=== PATIENT | female | born 1970 | race Caucasian/White ===

== ENCOUNTER → 2021-11-10 11:50 | Outpatient (BNVA) | payer OTHER, SELFPAY | PROVIDERS: PCP Nurse Practitioner Family; Visit Provider Nurse Practitioner Family | DX: F31.9 Bipolar disorder, unspecified (principal); M54.9 Dorsalgia, unspecified; G89.29 Other chronic pain; F17.200 Nicotine dependence, unspecified, uncomplicated; M54.50 Low back pain, unspecified; Z78.0 Asymptomatic menopausal state; Z13.220 Encounter for screening for lipoid disorders; Z13.6 Encounter for screening for cardiovascular disorders; O82 Encounter for cesarean delivery without indication; Z76.89 Persons encountering health services in other specified circumstances; Z12.31 Encounter for screening mammogram for malignant neoplasm of breast; G43.909 Migraine, unspecified, not intractable, without status migrainosus; Z12.11 Encounter for screening for malignant neoplasm of colon | CPT/HCPCS: 80053; 80061; 82306 ==

== ENCOUNTER → 2022-03-14 12:19 | Outpatient (BNVA) | payer OTHER, SELFPAY | PROVIDERS: PCP Nurse Practitioner Family; Visit Provider Nurse Practitioner Family | DX: E55.9 Vitamin D deficiency, unspecified (principal); M54.50 Low back pain, unspecified; F31.9 Bipolar disorder, unspecified; Z78.0 Asymptomatic menopausal state | CPT/HCPCS: 80053 ==

== ENCOUNTER → 2022-06-15 08:42 | Outpatient (BNVA) | payer OTHER, SELFPAY | PROVIDERS: PCP Nurse Practitioner Family; Visit Provider Nurse Practitioner Family | DX: E78.5 Hyperlipidemia, unspecified (principal); E55.9 Vitamin D deficiency, unspecified; F31.9 Bipolar disorder, unspecified | CPT/HCPCS: 80053; 80061 ==

== ENCOUNTER → 2022-07-18 08:11 | Outpatient (BNVA) | payer OTHER, SELFPAY | PROVIDERS: PCP Nurse Practitioner Family; Visit Provider Nurse Practitioner Family | DX: Z86.19 Personal history of other infectious and parasitic diseases (principal); R79.89 Other specified abnormal findings of blood chemistry | CPT/HCPCS: 80074; 87522 ==

== ENCOUNTER 2022-08-14 06:19 | Outpatient (CLI) | payer OTHER, SELFPAY ==
--- NOTE | 2022-08-14 06:30 | US_ITS ---
WS: [id number] RIGHT UPPER QUADRANT ULTRASOUND HISTORY: hep c COMPARISON: None available. Liver: 15.1 cm in length. Normal size liver and echogenicity. No bile duct dilatation or mass. Portal Vein: Normal hepatopetal flow with monophasic waveform. Gallbladder: Normally distended with stones present. No pericholecystic fluid. Several of these stone s in the gallbladder neck. CBD: 0.6 cm Pancreas: Normal size and echogenicity. Right kidney: 9.6 cm in length. Normal size and echogenicity. No hydronephrosis or mass. Aorta and IVC: Unremarkable abdominal aorta and IVC. No ascites. US/US liver [id number] IMPRESSION: 1. Cholelithiasis. Several stones are identified in the gallbladder. Some of t he stones are located in the neck of the gallbladder. No evidence for acute cho lecystitis or bile duct obstruction at this time. 2. Negative liver.
== END 2022-08-14 06:20 | disposition home or self-care (01) ==
LOC: RAD 06:21
PROVIDERS: PCP Nurse Practitioner Family; Visit Provider Family Medicine
DX: B19.20 Unspecified viral hepatitis C without hepatic coma (principal); K80.20 Calculus of gallbladder without cholecystitis without obstruction
CPT/HCPCS: 76705; 80053; 82977; 84443; 85025; 87806; 87902

== ENCOUNTER → 2022-11-07 08:36 | Outpatient (BNVA) | payer BC, SELFPAY | PROVIDERS: PCP Nurse Practitioner Family; Visit Provider Nurse Practitioner Family | DX: E78.5 Hyperlipidemia, unspecified (principal); E55.9 Vitamin D deficiency, unspecified | CPT/HCPCS: 80053; 80061 ==

== ENCOUNTER → 2023-02-12 14:25 | Outpatient (BNVA) | payer BC, SELFPAY | PROVIDERS: PCP Nurse Practitioner Family; Visit Provider Nurse Practitioner Family | DX: J18.9 Pneumonia, unspecified organism (principal); M54.9 Dorsalgia, unspecified; G89.29 Other chronic pain; M54.50 Low back pain, unspecified; J44.9 Chronic obstructive pulmonary disease, unspecified; R05.9 Cough, unspecified | CPT/HCPCS: 80053 ==

== ENCOUNTER 2023-06-14 20:43 | Emergency (ER) | payer BC, SELFPAY ==
[2023-06-14] VITALS (19 sets, daily range): BP systolic 127–141; BP diastolic 73–83; PULSE 80–82; RESP 14–16; O2SAT 90–97
--- NOTE | 2023-06-14 20:54 | XRR_ITS ---
PROCEDURE INFORMATION: Exam: XR Chest Exam date and time: 06/14/2023 9:50 PM Age: 52 years old Clinical indication: Other: Numbness; Additional info: Numbness tingling TECHNIQUE: Imaging protocol: Radiologic exam of the chest. Views: 1 view. COMPARISON: No relevant prior studies available. FINDINGS: Lungs: Unremarkable. No consolidation. Pleural spaces: Unremarkable. No pleural effusion. No pneumothorax. Heart/Mediastinum: Unremarkable. No cardiomegaly. Bones/joints: Mild degenerative of bilateral acromioclavicular joints. XR/XR chest 1V portable [id number] IMPRESSION: No acute cardiopulmonary process.
--- NOTE | 2023-06-14 20:54 | CTR_ITS ---
PROCEDURE INFORMATION: Exam: CT Head Without Contrast Exam date and time: 06/14/2023 9:00 PM Age: 52 years old Clinical indication: Other: Left facial numbness tingling since 7 am TECHNIQUE: Imaging protocol: Computed tomography of the head without contrast. Radiation optimization: All CT scans at this facility use at least one of these dose optimization techniques: automated exposure control; mA and/or kV adjustment per patient size (includes targeted exams where dose is matched to clinical indication); or iterative reconstruction. COMPARISON: No relevant prior studies available. RADIATION DOSE METRICS: Total DLP (mGy-cm): 992 FINDINGS: Brain: Normal. No hemorrhage. Unremarkable white matter. No mass effect. Cerebral ventricles: No ventriculomegaly. Paranasal sinuses: Visualized sinuses are unremarkable. No fluid levels. Mastoid air cells: Visualized mastoid air cells are well aerated. Bones/joints: Unremarkable. No acute fracture. Soft tissues: Unremarkable. CT/CT head wo con* [id number] IMPRESSION: No acute intracranial abnormality.
--- NOTE | 2023-06-14 20:56 | ED_ITS ---
HPI - General Adult 2 General: Chief complaint: General Medical Stated complaint: lightheaded speech headache numb tingling left joe Time Seen by Provider: 06/14/23 20:50 History of Present Illness: Patient presents to the ER with complaints of left-sided facial numbness and tingling since waking up at 7 AM this morning. She says it only on the left side of the face and does not extend to the right however it does sometimes go down into the left arm down to the left chest however it is not doing it currently right now it is only left side the face. Patient does not have any history of strokes TIAs or heart disease. Patient is not on any anticoagulation. Patient is a smoker and has previous diagnoses of chronic back pain, bipolar, Review of Systems 2 General: Reports: 10 or more systems reviewed and unremarkable except in HPI and below PFSH ED 2 PFSH: Medical History Bipolar 1 disorder Chronic back pain greater than 3 months duration delivery delivered Smoker Lumbar back pain Family History Grandfather No problems noted. Father Diabetes Stroke Social History Smoking and tobacco/nicotine status: former use of tobacco/nicotine Physical Exam 2 Const: COMMON NORMALS: no acute distress, average body habitus, patient oriented x3, no limitations, healthy appearing, alert and well nourished HENMT: COMMON NORMALS: normocephalic, atraumatic, hearing grossly normal bilaterally, external ears normal, Normal external nose present, moist oral mucous membranes and oropharynx normal HEAD & SCALP: normocephalic and atraumatic NOSE: Normal external nose present EXTERNAL EAR: Yes external ears normal Eye: COMMON NORMALS: Equal, round and reactive pupils present, EOMs intact bilaterally, conjunctivae normal and no scleral icterus CONJUNCTIVA: Yes conjunctivae normal PUPIL: Yes Equal, round and reactive pupils present Neck/C-Spine: COMMON NORMALS: full ROM, no lymphadenopathy, supple, no meningeal signs, no JVD and Thyroid normal THYROID: Thyroid normal Chest: COMMONS NORMALS: normal inspection of the chest and normal palpation of entire chest wall Resp: COMMON NORMALS: normal respiratory effort, No retractions, No use of accessory muscles and clear to auscultation bilaterally AUSCULTATION: clear to auscultation bilaterally Cardio: COMMON NORMALS: no JVD, regular rate, regular rhythm, S1 normal heart sound present, S2 normal heart sound present, No gallops present (Cardio), No clicks present (Cardio), No murmurs present (Cardio) and No rub (Cardio) R ATE: regular rate RHYTHM: regular rhythm HEART SOUNDS: S1 normal heart sound present and S2 normal heart sound present GI: COMMON NORMALS: Normal to inspection, nondistended, normoactive bowel sounds present, Soft to palpation, non-tender, No hepatosplenomegaly present and no masses PALPATION: Yes Soft to palpation and Yes No hepatosplenomegaly present Neuro: COMMON NORMALS: patient oriented x3 SENSORIUM/ORIENTATION: Yes alert MENINGEAL SIGNS: Yes no meningeal signs OTHER: No focal neurologic deficit noted. Course 2 Vital Signs: Vital signs: Vital Signs Pulse Rate 80 06/14/23 21:15 Respiratory Rate 14 06/14/23 21:15 Blood Pressure 129/80 06/14/23 23:00 Pulse Oximetry 96 06/14/23 23:00 Oxygen Delivery Me thod Room Air 06/14/23 21:15 MDM - General Adult Medical Decision Making Patient has lab work your urine drug screen and head CT chest x-ray performed. All of which was essentially benign except patient's urine drug screen showed positive for phencyclidine which may be related to her tramadol use and amphetamines is felt the patient has numbness tingling and paresthesias. Patient was informed of these findings will be discharged home to follow-up with her PCP for further evaluation and testing. Differential Diagnosis Numbness, tingling, paresthesia, TIA, CVA, Medical Records I reviewed the patient's medical records. Lab Data I reviewed the patient's lab results. 06/14/23 21:26 06/14/23 21:26 Radiology Impressions Chest X-Ray 06/14/23 20:54 IMPRESSION: No acute cardiopulmonary process. Head CT 06/14/23 20:54 IMPRESSION: No acute intracranial abnormality. Laboratory Results WBC 5.97 10^3/uL (3.29-11.43) 06/14/23 21: RBC 4.34 10^6/uL (3.85-5.65) 06/14/23 21:26 Hgb 13.20 g/dL (11.27-16.99) 06/14/23: Hct 38.5 % (36-47) 06/14/23: MCV 88.7 fl (85-98) 06/14/23 21: MCH 30.4 pg (27-33) 06/14/23: MCHC 34.3 g/dL (30-55) 06/14/23: RDW 13.0 % (12.1-15.1) 06/14/23: Plt Count 182 10^3/cmm (157-399) 06/14/23: MPV 10.4 fL (7.4-10.4) 06/14/23: Neut % (Auto) 38.3 % 06/14/23: Lymph % (Auto) 50.9 % 06/14/23: Daniels % (Auto) 7.5 % 06/14/23: Eos % (Auto) 2.3 % 06/14/23: Baso % (Auto) 0.8 % 06/14/23: Neut # (Auto) 2.28 10^3/uL (1.8-7.7) 06/14/23: Lymph # (Auto) 3.0 10^3/uL (0.8-4.8) 06/14/23: Daniels # (Auto) 0.5 10^3/uL (0.2-0.9) 06/14/23: Eos # (Auto) 0.1 10^3/uL (0.0-0.8) 06/14/23: Baso # (Auto) 0.1 10^3/uL (0.0-0.1) 06/14/23: Nucleated RBC % (auto) 0 % 06/14/23: Nucleated RBCs # 0.0 /100WBC 06/14/23: Sodium 142 mmol/L (136-145) 06/14/23: Potassium 3.9 mmol/L (3.5-5.1) 06/14/23: Chloride 104 mmol/L (98-107) 06/14/23: Carbon Dioxide 30 mmol/L (22-29) H 06/14/23: Anion Gap 11.9 (5-19) 06/14/23: BUN 10 mg/dL (6-20) 06/14/23: Creatinine 0.8 mg/dL (0.5-0.9) 06/14/23: GFR Calculation 75.0 mL/min (90-130) L 06/14/23: Glucose 103 mg/dL (65-115) 06/14/23: Calculated Osmolality 293 mOsm/kg (285-295) 06/14/23: Calcium 10.6 mg/dL (8.5-10.5) H 06/14/23: Magnesium 2.2 mg/dL (1.7-2.3) 06/14/23: Total Bilirubin 0.2 mg/dL (0.15-1.2) 06/14/23: AST 33 U/L (0-32) H 06/14/23: ALT 32 U/L (0-33) 06/14/23: Alkaline Phosphatase 85 U/L (35-105) 06/14/23: Troponin T Baseline 7 ng/L (0-10) 06/14/23: C-Reactive Protein 3.0 mg/L (0.0-4.9) 06/14/23: Total Protein 6.5 g/dL (6.6-8.7) L 06/14/23: Albumin 4.3 g/dL (3.5-5.2) 06/14/23: Globulin 2.2 g/dL (1.3-4.6) 06/14/23: TSH 1.96 uIU/mL (0.27-4.20) 06/14/23: Urine Color Yellow (Yellow) 06/14/23 22: Urine Appearance Hazy (CLEAR) A 06/14/23 22: Urine pH 5 (5-7) 06/14/23 22:14 Ur Specific [place] 1.030 (1.005-1.030) 06/14/23 22:14 Urine Protein Neg (Negative) 06/14/23 22:14 Urine Glucose (UA) Norm (Normal) 06/14/23 22:14 Urine Ketones Negative (Negative) 06/14/23 22:14 Urine Blood Neg (Negative) 06/14/23 22:14 Urine Nitrate Negative (Negative) 06/14/23 22:14 Urine Bilirubin Neg (Negative) 06/14/23 22:14 Urine Urobilinogen 1 mg/dL (Negative) H 06/14/23 22:14 Ur Leukocyte Esterase Trace (Negative) H 06/14/23 22:14 Urine RBC 0-4 /hpf (0-2) H 06/14/23 22:14 Urine WBC 5-10 /hpf (0-5) H 06/14/23 22:14 Ur Squamous Epith Cells 15-25 /hpf (0-5) H 06/14/23 22:14 Amorphous Sediment Not Reportable 06/14/23 22:14 Urine Bacteria 2+ /hpf (NONE) H 06/14/23 22:14 Urine Mucus 2+ /hpf 06/14/23 22:14 Urine Opiates Screen Negative ng/mL (Negative) 06/14/23 22:14 Ur Barbiturates Screen Negative ng/mL (Negative) 06/14/23 22:14 Ur Phencyclidine Scrn Positive ng/mL (Negative) H 06/14/23 22:14 Ur Amphetamines Screen Positive ng/mL (Negative) H 06/14/23 22:14 U Benzodiazepines Scrn Negative ng/mL (Negative) 06/14/23 22:14 Urine Cocaine Screen Negative ng/mL (Negative) 06/14/23 22:14 U Marijuana (THC) Screen Negative ng/mL (Negative) 06/14/23 22:14 All radiology interpretation(s) finalized by discharge EKG Data EKG 1: I personally reviewed and interpreted this EKG as follows: EKG interpretation date: 06/14/23 EKG interpretation time: 21:29 Prior EKG tracings: not available for review Interpretation: Ventricular rate 80 bpm, ME interval 155, QRS duration 99, QTc of 383, sinus rhythm Computer generated interpretation: Chest X-Ray 06/14/23 20:54 IMPRESSION: No acute cardiopulmonary process. Head CT 06/14/23 20:54 IMPRESSION: No acute intracranial abnormality. Discharge Plan Discharge Patient Disposition: Home Clinical Impression: Facial paresthesia, Amphetamine use Condition: Stable Prescriptions: No Action sumatriptan succinate [Imitrex] 50 mg tablet See Rx Instructions PO .COMPLEX 30 Days Qty: 14 3RF Rx Instructions: take 1 tab at onset of headache; if no relief may repeat 1 tab after at least 2 hrs; max = 4 tabs/24 hr PO ipratropium-albuterol 0.5 mg-3 mg(2.5 mg base)/3 mL solution for nebulization 3 ml inhalation Q4H PRN (Reason: wheezing) Qty: 180 3RF tramadol 50 mg tablet 100 mg PO Q8H PRN (Reason: pain) 30 Days Qty: 180 0RF diclofenac sodium [Voltaren Arthritis Pain] 1 % gel 4 g topical QID Qty: 100 11RF Rx Instructions: apply to single knee, ankle, foot; for foot includes sole/toes/top of foot lidocaine 5 % adhesive patch,medicated 2 patch topical DAILY 30 Days Qty: 60 0RF Rx Instructions: leave on most painful area for up to 12 hrs cholecalciferol (vitamin D3) 50 mcg (2,000 unit) capsule 50 mcg PO DAILY 90 Days Qty: 90 1RF tizanidine 4 mg tablet 4 mg PO Q8H 30 Days Qty: 90 3RF olanzapine 5 mg tablet 5 mg PO DAILY 90 Days Qty: 90 1RF Discharge Orders: Discharge ED (Routine); Ordered 06/14/23 Ordered By: Kd Mason Referrals: Avis Vicente NP [Primary Care Provider] - 1 week Patient Instructions: Paresthesia (ED) Activity Restrictions/Additional Instructions: Your workup in the ER did not show any acute stroke symptoms or other reasons for the numbness and tingling of your upper body. Your urine drug screen was positive for amphetamines. If you are using amphetamines or methamphetamines please stop using them. Please follow-up with your family practice physician for further evaluation and treatment within the next 7 days. If your symptoms worsen or change please feel free to return to the ER. 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
--- NOTE | 2023-06-14 21:29 | ECG_ITS ---
[facility] Test Date: 2023-06-14 Pat Name: Yenni Lay Department: Room: Gender: Female Social Services Director: : 1970 Requested By: Kd Mason Order Number: [id number] Cintron MD: Filiberto Lowe M.D. Measurements Intervals [place] Rate: 80 P: 60 ID: [id number] QRS: 78 QRSD: 99 T: 66 QT: 347 QTc: 402 Interpretive Statements SINUS RHYTHM No previous ECG available for comparison Electronically Signed On 06-15-2023 10:47:21 CURATORIAL ASSISTANT by Filiberto Lowe M.D. [id number]
[2023-06-14 21:31] LABS: Basophils # 0.1 10^3/uL (0.0-0.1); Basophils % 0.8 %; Eosinophils # 0.1 10^3/uL (0.0-0.8); Eosinophils % 2.3 %; Hematocrit 38.5 % (36-47); Lymphocytes % 50.9 %; Mean Corpuscular HGB Conc 34.3 g/dL (30-55); Mean Corpuscular Hemoglobin 30.4 pg (27-33); Mean Corpuscular Volume 88.7 fl (85-98); Mean Platelet Volume 10.4 fL (7.4-10.4); Monocytes # 0.5 10^3/uL (0.2-0.9); Monocytes % 7.5 %; Neutrophils # 2.28 10^3/uL (1.8-7.7); Neutrophils % 38.3 %; Nucleated Red Blood Cells % 0 %; Platelet Count 182 10^3/cmm (157-399); Red Blood Count 4.34 10^6/uL (3.85-5.65); White Blood Count 5.97 10^3/uL (3.29-11.43)
[2023-06-14 21:49] LABS: Troponin(5th) Baseline 7 ng/L (0-10)
[2023-06-14 22:11] LABS: Alanine Aminotransferase 32 U/L (0-33); Albumin Level 4.3 g/dL (3.5-5.2); Alkaline Phosphatase 85 U/L (35-105); Anion Gap 11.9 (5-19); Aspartate Amino Transferase 33 U/L (0-32); Blood Urea Nitrogen 10 mg/dL (6-20); Calcium 10.6 mg/dL (8.5-10.5); Carbon Dioxide 30 mmol/L (22-29); Chloride 104 mmol/L (98-107); Globulin 2.2 g/dL (1.3-4.6); Glucose 103 mg/dL (65-115); Magnesium 2.2 mg/dL (1.7-2.3); Osmolality Calculated 293 mOsm/kg (285-295); Potassium 3.9 mmol/L (3.5-5.1); Sodium 142 mmol/L (136-145); Thyroid Stimulating Hormone 1.96 uIU/mL (0.27-4.20); Total Bilirubin 0.2 mg/dL (0.15-1.2); Total Protein 6.5 g/dL (6.6-8.7)
[2023-06-14 22:31] LABS: Amphetamines Screen Urine Positive (Negative); Barbiturates Screen Urine Negative (Negative); Benzodiazepines Screen Urine Negative (Negative); Cocaine Screen Urine Negative (Negative); Opiate Screen Urine Negative (Negative); PCP Screen Urine Positive (Negative); THC Screen Urine Negative (Negative)
[2023-06-14 22:35] LABS: Add Urine Microscopic? YES; Bilirubin Urine Neg (Negative); Blood Urine Neg (Negative); Glucose Urine UA Norm (Normal); Ketones Urine Negative (Negative); Leukocyte Esterase Urine Trace (Negative); Nitrate Urine Negative (Negative); Protein Urine Neg (Negative); Urine Appearance Hazy (CLEAR); Urine Color Yellow (Yellow); Urobilinogen Urine 1 mg/dL (Negative); pH Urine 5 (5-7)
[2023-06-14 22:36] LABS: Add Urine Culture? No; Bacteria Urine 2+ /hpf; Mucus Urine 2+ /hpf; RBC Urine 0-4 /hpf (0-2); Squamous Epithelial Cell Urine 15-25 /hpf (0-5)
--- NOTE | 2023-06-14 23:03 | ECG_ITS ---
[facility] Test Date: 2023-06-14 Pat Name: Yenni Lay Department: Room: Gender: Female Disability Services Coordinator: : 1970 Requested By: Kd Mason Order Number: [id number] Cintron MD: Filiberto Lowe M.D. Measurements Intervals [place] Rate: 80 P: 64 TX: 156 QRS: 84 QRSD: 92 T: 78 QT: 355 QTc: 412 Interpretive Statements SINUS RHYTHM Compared to ECG 06/14/2023 21:29:51 No significant changes Electronically Signed On 06-15-2023 10:48:32 TELEHEALTH NURSE by Filiberto Lowe M.D. [id number]
== END 2023-06-14 23:08 | disposition home or self-care (01) ==
PROVIDERS: Emergency Provider Emergency Medicine; PCP Nurse Practitioner Family
DX: R20.2 Paresthesia of skin (principal); F15.90 Other stimulant use, unspecified, uncomplicated; Z87.891 Personal history of nicotine dependence
CPT/HCPCS: 36415; 70450; 71045; 80053; 80306; 81001; 83735; 84443; 84484; 85025; 86140; 93005; 99285

== ENCOUNTER → 2023-07-05 08:55 | Outpatient (BNVA) | payer BC, SELFPAY | PROVIDERS: PCP Nurse Practitioner Family; Visit Provider Nurse Practitioner Family | DX: R11.0 Nausea (principal); M54.9 Dorsalgia, unspecified; G89.29 Other chronic pain; M54.50 Low back pain, unspecified; Z79.899 Other long term (current) drug therapy | CPT/HCPCS: 80307 ==

== ENCOUNTER 2023-11-23 08:47 | Outpatient (CLI) | payer OTHER, MEDICAID, SELFPAY ==
--- NOTE | 2023-11-23 08:53 | MR_ITS ---
WS: [id number] MRI CERVICAL SPINE NONCONTRAST HISTORY: RADICULOPATHY CERVICAL REGION COMPARISON: None available. Technique: Multiplanar, multisequence noncontrast imaging of the cervical spine. Straightening and reversal of the normal cervical lordosis centered at C6-7. Signal within the cervical cord is normal. Visualized posterior fossa is unremarkable. Craniocervical junction, C1 and C2 relationship, odontoid process and soft tissues are normal. C2-C3: Small central disc protrusion. No stenosis. C3-C4: Mild osteophytic ridging with a small central disc protrusion and foraminal osteophytes. Mild effacement of CSF, greatest on the RIGHT. Mild central and RIGHT foraminal stenosis. C4-C5: Diffuse osteophytic ridging with disc bulging and a central disc protrusion. Small foraminal o steophytes. Mild central and bilateral foraminal stenosis, RIGHT greater than LEFT. C5-C6: Diffuse osteophytic ridging is asymmetric with mild annular disc bulging. Small bilateral fora dae disc osteophytes. Mild central stenosis with moderate RIGHT foraminal stenosis and facet arthri tis. Small osteophyte effaces the LEFT lateral thecal sac. C6-C7: Osteophytic ridging with a central disc protrusion and annular disc bulging. Advanced degenera tive disc disease. Moderate to severe central with bilateral foraminal stenosis. C7-T1: Diffuse annular disc bulging with osteophytic ridging and facet arthritis. Small central disc protrusion. Bilateral foraminal osteophytes. Moderate central and bilateral foraminal stenosis. Paraspinal soft tissue are normal. MR/MR cervical spin wo con* [id number] IMPRESSION: 1. Straightening and reversal the normal cervical lordosis centered at C6-7. 2. Multilevel moderate to severe cervical spondylosis. Stenoses due to combina tion of vertebral body osteophytosis, disc bulging and facet arthritis. 3. C6-7: Central disc protrusion. Moderate to severe central with bilateral fo raminal stenosis. 4. C5-6: Mild central stenosis with moderate RIGHT foraminal stenosis. 5. C3-4: Mild central and RIGHT foraminal stenosis due to disc osteophyte dise ase. 6. C4-5: Mild central and bilateral foraminal stenosis, RIGHT greater than LEF T. 7. C7-T1: Moderate central and bilateral foraminal stenosis.
== END 2023-11-23 08:48 | disposition home or self-care (01) ==
LOC: RAD 08:49
PROVIDERS: PCP Nurse Practitioner Family; Visit Provider Internal Medicine
DX: M54.12 Radiculopathy, cervical region (principal); M25.78 Osteophyte, vertebrae; M50.321 Other cervical disc degeneration at C4-C5 level; M50.322 Other cervical disc degeneration at C5-C6 level; M50.323 Other cervical disc degeneration at C6-C7 level; M48.02 Spinal stenosis, cervical region; M50.33 Other cervical disc degeneration, cervicothoracic region; M48.03 Spinal stenosis, cervicothoracic region
CPT/HCPCS: 72141

== ENCOUNTER 2024-08-25 12:22 | Emergency (ER) | payer OTHER, BC, MEDICAID, SELFPAY ==
--- NOTE | 2024-08-25 12:28 | W.ED.BACK ---
HPI - Back Pain/Injury General: Stated Complaint: back pain Time Seen by Provider: 08/25/24 12:27 Related Data Previous Rx's ?Medication ?Instructions ?Recorded sumatriptan succinate 50 mg tablet See Rx Instructions PO .COMPLEX 30 01/22/23 (Imitrex) days #14 tabs ipratropium 0.5 mg-albuterol 3 mg 3 ml inhalation Q4H PRN wheezing 02/12/23 (2.5 mg base)/3 mL nebulization #180 mL soln cholecalciferol (vitamin D3) 50 50 mcg PO DAILY 90 days #90 caps 03/30/23 mcg (2,000 unit) capsule diclofenac sodium 1 % topical gel 4 g topical QID #100 grams 05/02/23 (Voltaren Arthritis Pain) lidocaine 5 % topical patch 2 patch topical DAILY 30 days #60 05/02/23 ea ondansetron 4 mg disintegrating 4 mg PO Q6H PRN nausea and 07/05/23 tablet vomiting #90 tabs olanzapine 5 mg tablet 5 mg PO DAILY 90 days #90 tabs 08/15/23 tizanidine 4 mg tablet 4 mg PO Q8H muscle spasms 90 days 08/15/23 #270 tabs tramadol 50 mg tablet 100 mg (2 x 50 mg) PO Q8H pain 60 08/15/23 days #360 tabs Allergies Allergy/AdvReac Type Severity Reaction Status Date / Time No Known Allergies Allergy Verified 02/12/23 13:39 [facility] ED PFSH: Medical History Bipolar 1 disorder Chronic back pain greater than 3 months duration delivery delivered Smoker Lumbar back pain Family History Grandfather No problems noted. Father Diabetes Stroke Social History Smoking and tobacco/nicotine status: former use of tobacco/nicotine Discharge Plan Discharge Condition: Stable Prescriptions: No Action sumatriptan succinate [Imitrex] 50 mg tablet See Rx Instructions PO .COMPLEX 30 Days Qty: 14 3RF Rx Instructions: take 1 tab at onset of headache; if no relief may repeat 1 tab after at least 2 hrs; max = 4 tabs/24 hr PO ipratropium-albuterol 0.5 mg-3 mg(2.5 mg base)/3 mL solution for nebulization 3 ml inhalation Q4H PRN (Reason: wheezing) Qty: 180 3RF diclofenac sodium [Voltaren Arthritis Pain] 1 % gel 4 g topical QID Qty: 100 11RF Rx Instructions: apply to single knee, ankle, foot; for foot includes sole/toes/top of foot lidocaine 5 % adhesive patch,medicated 2 patch topical DAILY 30 Days Qty: 60 0RF Rx Instructions: leave on most painful area for up to 12 hrs tramadol 50 mg tablet 100 mg PO Q8H 60 Days Qty: 360 0RF olanzapine 5 mg tablet 5 mg PO DAILY 90 Days Qty: 90 1RF tizanidine 4 mg tablet 4 mg PO Q8H 90 Days Qty: 270 1RF cholecalciferol (vitamin D3) 50 mcg (2,000 unit) capsule 50 mcg PO DAILY 90 Days Qty: 90 1RF ondansetron 4 mg tablet,disintegrating 4 mg PO Q6H PRN (Reason: nausea and vomiting) Qty: 90 0RF Referrals: Avis Vicente NP [Primary Care Provider, Family Practice] Print Language: Citizen Of [place] Coding Level of Care Code 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
--- NOTE | 2024-08-25 12:34 | W.ED.NAVMDI ---
HPI - Nausea/Vomiting/Diarrhea General: Chief complaint: Nausea/Vomiting/Diarrhea Stated complaint: back pain Time Seen by Provider: 08/25/24 12:27 Source: patient and EMS Mode of arrival: EMS Limitations: no limitations History of Present Illness: Patient is a 54-year-old female presents to ED today complaining of diarrhea and feeling cold. She initially states she believes she overdosed on her fentanyl that she is prescribed by pain management for chronic back pain and because of this administered Narcan although later tells me she was recently taking off of her fentanyl and placed on oxycodone. She states this morning she took an oxycodone 20 mg tablet and then cannot remember but thinks maybe she accidentally took another one. States after this she began to feel funny stating she felt lightheaded and was concerned that maybe she had accidentally overdosed plus administered herself Narcan. Following this she began having uncontrollable diarrhea. She arrives to ED soiled in stool. She does state she had a few episodes of diarrhea yesterday. Denies abdominal pain/fevers. No vomiting. Vitals stable upon arrival. MD elicited complaint: diarrhea Pertinent past history: other (chronic opiate use/recent Narcan) Onset (ago): hour(s) Description of diarrhea: watery and loose Associated nausea: No Associated abdominal pain: No Location of pain: None Exacerbating factors: other (recent Narcan use) Relieving factors: none Associated symtoms: Denies chest pain, dizziness, dysuria, fatigue, headache(s), malaise or nausea Related Data Home Medications ?Medication ?Instructions ?Recorded ?Confirmed duloxetine 60 mg capsule,delayed 60 mg PO DAILY 08/25/24 08/25/24 release fentanyl 25 mcg/hr transdermal 1 patch topical Q72H 08/25/24 08/25/24 patch naloxone 4 mg/actuation nasal See Rx Instructions .Route .COMPLEX 08/25/24 08/25/24 spray (Narcan) oxycodone 5 mg tablet 5 mg PO Q6H PRN Pain 08/25/24 08/25/24 Previous Rx's ?Medication ?Instructions ?Recorded ondansetron 4 mg disintegrating 4 mg PO Q6H PRN nausea and 07/05/23 tablet vomiting #90 tabs olanzapine 5 mg tablet 5 mg PO DAILY 90 days #90 tabs 08/15/23 Allergies Allergy/AdvReac Type Severity Reaction Status Date / Time No Known Allergies Allergy Verified 02/12/23 13:39 Review of Systems Const: Denies: fever(s), chills, body aches, fatigue or malaise Card: Denies: chest pain Resp: Denies: dyspnea GI: Reports: diarrhea; Denies: abdominal pain, nausea or vomiting : Denies: flank pain, difficulty voiding, dysuria or urinary frequency Musc: Reports: back pain (chronic); Denies: neck pain, extremity pain, extremity swelling, joint pain, joint swelling or joint redness Neuro: Denies: headache(s), numbness in extremities, weakness in extremities, sensory changes or dizziness PFSH ED PFSH: Medical History Bipolar 1 disorder Chronic back pain greater than 3 months duration delivery delivered Smoker Lumbar back pain Family History Grandfather No problems noted. Father Diabetes Stroke Social History Smoking and tobacco/nicotine status: former use of tobacco/nicotine Physical Exam Const: COMMON NORMALS: patient oriented x3, no limitations, alert and well nourished GENERAL APPEARANCE: cooperative, disheveled and appears older than stated age ORIENTATION/CONSCIOUSNESS: Yes awake, Yes oriented to person, Yes oriented to place and Yes oriented to time HENMT: COMMON NORMALS: normocephalic and atraumatic HEAD & SCALP: normal to inspection, normocephalic and atraumatic Eye: COMMON NORMALS: Equal, round and reactive pupils present and EOMs intact bilaterally GENERAL EYE: appearance normal, both eyes and all related structures and normal light reflex PUPIL: Yes Equal, round and reactive pupils present DIRECT OPHTHALMOSCOPY: Yes normal light reflex Resp: COMMON NORMALS: normal respiratory effort and clear to auscultation bilaterally AUSCULTATION: clear to auscultation bilaterally Cardio: COMMON NORMALS: regular rate and regular rhythm RATE: regular rate RHYTHM: regular rhythm GI: COMMON NORMALS: Normal to inspection, nondistended, normoactive bowel sounds present, Soft to palpation, non-tender, No hepatosplenomegaly present and no masses PALPATION: Yes Soft to palpation and Yes No hepatosplenomegaly present : COMMON NORMALS: Yes no CVA tenderness BLADDER/KIDNEY EXAM: Yes no CVA tenderness Back/Pelvis: COMMON NORMALS: no CVA tenderness and thoracic and lumbar spine normal to inspection Extremity: GENERAL: Yes normal exam except as noted Neuro: TONE COMA SCALE: document GCS findings Tone coma scale eye opening: Spontaneous Tone coma scale verbal response: Orientated Tone coma scale motor response: Obey commands Mcintosh coma scale total score: 15 COMMON NORMALS: patient oriented x3, moves all extremities, no focal motor deficits and no sensory deficits noted SENSORIUM/ORIENTATION: Yes alert, Yes oriented to person, Yes oriented to place and Yes oriented to time Skin: COMMON NORMALS: no rashes or lesions noted GENERAL SKIN EXAM: no rashes or lesions noted Course Vital Signs: Vital signs: Vital Signs Temperature 97.8 F 08/25/24 12:43 Pulse Rate 89 08/25/24 12:43 Respiratory Rate 22 H 08/25/24 12:43 Blood Pressure 145/88 08/25/24 12:43 Pulse Oximetry 94 08/25/24 12:43 Oxygen Delivery Me thod Room Air 08/25/24 12:43 MDM - Nausea/Vomiting/Diarrhea Medical Decision Making Shortly after arrival, patient tells me she is feeling better and would like to go home. She is calling her for a ride. She will sign out AMA. She refused blood work during her stay. Patient is alert and oriented and ambulatory in her room without difficulty. Medical Records I reviewed the patient's medical records. No radiology studies performed this visit Discharge Plan Discharge Patient Disposition: Left Against Medical Advice Clinical Impression: Diarrhea Condition: Stable Prescriptions: No Action olanzapine 5 mg tablet 5 mg PO DAILY 90 Days Qty: 90 1RF ondansetron 4 mg tablet,disintegrating 4 mg PO Q6H PRN (Reason: nausea and vomiting) Qty: 90 0RF fentanyl 25 mcg/hr patch 72 hour 1 patch topical Q72H oxycodone 5 mg tablet 5 mg PO Q6H PRN (Reason: Pain) naloxone [Narcan] 4 mg/actuation spray,non-aerosol See Rx Instructions .ROUTE .COMPLEX Rx Instructions: intranasally as directed duloxetine 60 mg capsule,delayed release(DR/EC) 60 mg PO DAILY Referrals: Avis Vicente NP [Primary Care Provider, Family Practice] Print Language: Kiswahili Coding Level of Care Code ED Yoga Teacher for Chg Fwd
[2024-08-25 12:43] VITALS: BP 145/88; PULSE 89; RESP 22; TEMP 36.6; O2SAT 94; BMI 25.7
--- NOTE | 2024-08-25 13:22 | PC.NURSE ---
Yaritza WATSON to start IV and obtain labs, pt told Yaritza WATSON that she has her labs done at her Dr. office and that she felt better and wanted to leave. Yaritza WATSON notified this nurse. This nurse notified [facility] Tom. Lanie to bedside to speak with pt. Pt signed AMA form, Pt educated that condition could worsen, including , pt verbalized understanding. Pt ambulated out of ER with all belongings.
== END 2024-08-25 13:26 | disposition left against medical advice (07) ==
PROVIDERS: Emergency Provider Physician Assistant; PCP Nurse Practitioner Family
DX: R19.7 Diarrhea, unspecified (principal); Z87.891 Personal history of nicotine dependence
CPT/HCPCS: 99283